=== PATIENT | male | born 1940 | race Two or more races ===

== ENCOUNTER 2016-05-29 23:31 | Inpatient (IN) | payer MEDICARE, OTHER ==
[~2016-05-29] VITALS: Ht 170.2 cm; Wt 75.3 kg
[2016-05-29] MEDS ORDERED: TYLENOL EXTRA500 MG ORAL (23:38)
[2016-05-29 23:54] LABS: BASOPHILS % (AUTO) 1.4 % (0.0-2.0); LYMPHOCYTES % (AUTO) 45.2 % (20.0-45.0); MEAN CORPUSCULAR HEMOGLOBIN 30.9 PG (27.0-31.0); MEAN CORPUSCULAR HGB CONC 33.5 G/DL (32.0-36.0); MEAN CORPUSCULAR VOLUME 92 FL (80-99); MEAN PLATELET VOLUME 7.2 FL (6.5-10.1); NEUTROPHILS % (AUTO) 42.5 % (45.0-75.0); PLATELET COUNT 205 K/UL (150-450); RED BLOOD COUNT 4.48 M/UL (4.70-6.10); RED CELL DISTRIBUTION WIDTH 12.3 % (11.6-14.8); WHITE BLOOD COUNT 9.6 K/UL (4.8-10.8)
[2016-05-30] VITALS (10 sets, daily range): BP systolic 105–144; BP diastolic 48–69
[2016-05-30] MEDS ORDERED: Nitroglycerin Subl 0.4mg tab (Bottle Of 25) SL PRN
[2016-05-30 00:06] LABS: TROPONIN I < 0.30 ng/mL (<=0.30)
[2016-05-30 00:09] LABS: ALANINE AMINOTRANSFERASE 13 U/L (3-41); ALBUMIN/GLOBULIN RATIO 1.6 (1.0-2.7); ANION GAP 15 (5-15); ASPARTATE AMINO TRANSFERASE 14 U/L (5-40); CALCIUM 8.4 mg/dL (8.6-10.2); CARBON DIOXIDE 26 mEQ/L (20-30); CHLORIDE 102 mEQ/L (98-107); CREATININE 0.9 mg/dL (0.7-1.2); HEMOLYSIS 3; POTASSIUM 3.9 mEQ/L (3.4-4.9); SODIUM 143 mEQ/L (135-145); TOTAL PROTEIN 6.6 g/dL (6.6-8.7)
[2016-05-30 00:21] LABS: CKMB < 1.5 ng/mL (< 6.7)
[2016-05-30] MEDS ORDERED: IBUPROFEN600 M1 PO (00:54)
[2016-05-30] MEDS ORDERED: NAPROXEN250 M1 PO (00:54)
[2016-05-30] MEDS ORDERED: CYCLOBENZAPRINE10 MG ORAL (00:56)
[2016-05-30] MEDS ORDERED: TRAMADOL HCL100 M2 ORAL (00:57)
--- NOTE | 2016-05-30 03:56 | Emergency Room Report ---
History of Present Illness General Chief Complaint: Chest Pain Source: Patient, EMS Present Illness HPI 75-year-old female presents to ED complaining of chest pain. Per EMS patient noted chest pain a few hours prior to arrival. Start with back pain which radiated to the chest. Pain was sharp, pressure-like, midsternal. 8/10. Radiating to the left arm. Patient was given aspirin and nitroglycerin by EMS with minimal improvement. Denies shortness of breath. Patient notes history of back pain with back surgery and has had pain radiating to his chest in the past but states today it is different. No aggravating or relieving factors. Denies any other associated symptoms Allergies: Coded Allergies: No Known Allergies (Unverified , 05/29/16) Patient History Past Medical History: none Past Surgical History: none Pertinent Family History: none Social History: Denies: alcohol use, drug use, smoking Immunizations: UTD Reviewed Nursing Documentation: PMH: Agreed, PSxH: Agreed Nursing Documentation-PMH Hx Cardiac Problems: Yes Hx Hypertension: No - Back surgery in October, Review of Systems All Other Systems: negative except mentioned in HPI Physical Exam Vital Signs Date Time Temp Pulse Resp B/P Pulse Ox O2 Delivery O2 Flow Rate FiO2 05/29/16 23:28 97.2 80 18 170/100 98 Room Air 05/30/16 00:10 2.0 Sp02 EP Interpretation: reviewed, normal General Appearance: alert, GCS 15, non-toxic, mild distress Head: normocephalic Eyes: bilateral eye PERRL, bilateral eye normal inspection ENT: normal ENT inspection Neck: normal inspection Respiratory: lungs clear, normal breath sounds, speaking full sentences, other - reproducibel chest wall pain Cardiovascular #1: regular rate, rhythm, no edema Gastrointestinal: normal inspection Rectal: deferred Genitourinary: no CVA tenderness Musculoskeletal: normal inspection Neurologic: alert, oriented x3, responsive, motor strength/tone normal, sensory intact, speech normal Psychiatric: normal inspection Skin: normal inspection Lymphatic: normal inspection Medical Decision Making Diagnostic Impression: Primary Impression: ACS (acute coronary syndrome) ER Course Hospital Course 75-year-old male presents ED complaining of back pain radiating towards the chest Differential diagnoses include: W[place]/unstable angina, contusion, muscle strain, PTX, rib fracture Clinical course Patient placed on stretcher. on environmental monitoring specialist. After initial history and physical I ordered labs, EKG, chest x-ray, ASA, ntg labs reviewed- no leukocytosis, hb/hct stable, electrolytes ok, trop negative, Utox + THC Chest x-ray- no acute process The chest pain was reproducible which could be consistent with the muscular pain he's experienced in the past. However the pain did resolve with nitroglycerin. I do not believe it is safe to discharge the patient at this time I believe he should be admitted for at observation. Patient agrees with the plan Case discussed with and he agreed to accept the patient to his service for further care and support I. I feel this is a highly complex case requiring extensive working including EKG/Rhythm strip, Xray/CT/US, Blood/urine lab work, repeat exams while in ED, and administration of strong opiates/narcotics for pain control, admission to hospital or close patient follow up. Diagnosis - ACS admitted to telemetry in serious condition Labs Test 05/29/16 23:40 White Blood Count 9.6 K/UL (4.8-10.8) Red Blood Count 4.48 M/UL (4.70-6.10) Hemoglobin 13.9 G/DL (14.2-18.0) Hematocrit 41.4 % (42.0-52.0) Mean Corpuscular Volume 92 FL (80-99) Mean Corpuscular Hemoglobin 30.9 PG (27.0-31.0) Mean Corpuscular Hemoglobin Concent 33.5 G/DL (32.0-36.0) Red Cell Distribution Width 12.3 % (11.6-14.8) Platelet Count 205 K/UL (150-450) Mean Platelet Volume 7.2 FL (6.5-10.1) Neutrophils (%) (Auto) 42.5 % (45.0-75.0) Lymphocytes (%) (Auto) 45.2 % (20.0-45.0) Monocytes (%) (Auto) 9.0 % (1.0-10.0) Eosinophils (%) (Auto) 2.0 % (0.0-3.0) Basophils (%) (Auto) 1.4 % (0.0-2.0) Sodium Level 143 mEQ/L (135-145) Potassium Level 3.9 mEQ/L (3.4-4.9) Chloride Level 102 mEQ/L (98-107) Carbon Dioxide Level 26 mEQ/L (20-30) Anion Gap 15 (5-15) Blood Urea Nitrogen 16 mg/dL (7-23) Creatinine 0.9 mg/dL (0.7-1.2) Estimat Glomerular Filtration Rate mL/min (>60) Glucose Level 102 mg/dL (74-106) Calcium Level 8.4 mg/dL (8.6-10.2) Total Bilirubin 0.2 mg/dL (0.0-1.2) Aspartate Amino Transf (AST/SGOT) 14 U/L (5-40) Alanine Aminotransferase (ALT/SGPT) 13 U/L (3-41) Alkaline Phosphatase 46 U/L (40-129) Total Creatine Kinase 56 U/L (38-174) Creatine Kinase MB < 1.5 ng/mL (< 6.7) Creatine Kinase MB Relative Index 2.6 Troponin I < 0.30 ng/mL (<=0.30) Pro-B-Type Natriuretic Peptide 63 pg/mL (0-450) Total Protein 6.6 g/dL (6.6-8.7) Albumin 4.1 g/dL (3.5-5.2) Globulin 2.5 g/dL Albumin/Globulin Ratio 1.6 (1.0-2.7) Urine Opiates Screen Negative (NEGATIVE) Urine Barbiturates Screen Negative (NEGATIVE) Phencyclidine (PCP) Screen Negative (NEGATIVE) Urine Amphetamines Screen Negative (NEGATIVE) Urine Benzodiazepines Screen Negative (NEGATIVE) Urine Cocaine Screen Negative (NEGATIVE) Urine Marijuana (THC) Screen Positive (NEGATIVE) EKG Diagnostic Results Rate: normal Rhythm: NSR ST Segments: other - RBBB ASA given to the pt in ED: Yes Rhythm Strip Diag. Results EP Interpretation: yes Rhythm: NSR, no PVC's, no ectopy Chest X-Ray Diagnostic Results EP Interpretation: Yes Findings: no consolidation, no effusion, no pneumothorax, no acute cardiopulmonary disease Number of Views: 1 Last Vital Signs Date Time Temp Pulse Resp B/P Pulse Ox O2 Delivery O2 Flow Rate FiO2 05/30/16 03:00 67 17 108/54 100 Nasal Cannula 2.0 05/30/16 01:12 98.0 Status: improved Disposition: ADMITTED INPATIENT Condition: Serious Referrals: NOT CHOSEN IPA/MD,REFERRING (PCP) VIANEY AVINA M.D. May 30, 2016 03:56
[2016-05-30] MEDS ORDERED: Nitroglycerin 2% oint pkt TOPIC ONE (05:30)
[2016-05-30] MEDS ORDERED: Morphine Sulfate 2mg/ml Inj IVP PRN (09:30)
[2016-05-30] MEDS ORDERED: traMADol 50mg tab ORAL PRN (09:30)
--- NOTE | 2016-05-30 11:17 | Diagnostic Imaging Report ---
Indication: Chest Pain Comparison: None A single view chest radiograph was obtained. Findings: Heart is enlarged. Lung lines are low but clear. There is cervical hardware present. Bones are unremarkable. Impression: No acute disease
--- NOTE | 2016-05-30 13:13 | History and Physical ---
History of Present Illness General Reason for Hospitalization: Chest Pain Present Illness HPI 75 y/o male with history of recent L4-5 laminectomy s/p fall in October 2015 presents to the ED c/o chest pain. Patient states that he had left shoulder pain last night around 6 pm. The pain escalated and radiated to the substernal region radiating to the neck. 911 was called. Pain was relieved with Nitro. Patient reports he has been alternating Tylenol, Ibuprofen, and Naproxen for pain management. Initial troponin was negative. Chest pain was reproducible per ER physician. Patient also reports that he had a full cardiac and pulmonary work up about 10 years ago and again 5 years ago when he had sudden chest pain while getting cataract surgery. All workup has been negative thus far. Patient was admitted for further care. Allergies: Coded Allergies: No Known Allergies (Unverified , 05/29/16) Medication History Scheduled Cyclobenzaprine Hcl* (Flexeril*), 10 MG ORAL THREE TIMES A DAY, (Reported) Ibuprofen (Ibuprofen), 600 MG PO DAILY, (Reported) Naproxen (Naproxen), 500 MG PO DAILY, (Reported) Tramadol Hcl (Tramadol Hcl), 100 MG ORAL DAILY, (Reported) Scheduled PRN Acetaminophen* (Tylenol Extra Strength*), Unknown Dose ORAL Q6H PRN for Mild Pain/Temp > 100.5, (Reported) Patient History History Provided By: Patient Healthcare decision maker Resuscitation status Full Code Advanced Directive on File will bring documentations Physical Exam General Appearance: WD/WN, no apparent distress HEENT: normocephalic, atraumatic Respiratory/Chest: lungs clear Cardiovascular/Chest: normal rate, regular rhythm Abdomen: non tender, soft Extremities: non-pitting Neurologic: alert, oriented x 3 Last 24 Hour Vital Signs Date Time Temp Pulse Resp B/P Pulse Ox O2 Delivery O2 Flow Rate FiO2 05/30/16 12:49 100.2 76 20 128/57 96 Nasal Cannula 2.0 05/30/16 12:00 97.9 05/30/16 11:37 Nasal Cannula 2.0 28 05/30/16 11:36 97 Nasal Cannula 2.0 28 05/30/16 08:00 86 05/30/16 07:24 66 15 128/59 98 Nasal Cannula 2.0 05/30/16 07:09 97.5 67 15 128/48 98 Nasal Cannula 2.0 05/30/16 06:00 97.5 67 15 124/59 98 Nasal Cannula 2.0 05/30/16 05:35 124/56 05/30/16 05:00 69 17 116/57 98 Nasal Cannula 2.0 05/30/16 04:00 97.8 72 16 109/58 100 Nasal Cannula 2.0 05/30/16 03:00 67 17 108/54 100 Nasal Cannula 2.0 05/30/16 01:12 98.0 65 19 105/48 100 Nasal Cannula 2.0 05/30/16 00:12 97.2 66 16 144/69 100 Nasal Cannula 2.0 05/30/16 00:10 66 16 Nasal Cannula 2.0 05/29/16 23:55 154/75 05/29/16 23:28 97.2 80 18 170/100 98 Room Air Intake and Output 05/29/16 05/30/16 19:00 07:00 Intake Total 1500 ml Balance 1500 ml Intake IV Total 1500 ml # Voids 1 Laboratory Tests Test 05/29/16 23:40 White Blood Count 9.6 K/UL (4.8-10.8) Red Blood Count 4.48 M/UL (4.70-6.10) L Hemoglobin 13.9 G/DL (14.2-18.0) L Hematocrit 41.4 % (42.0-52.0) L Mean Corpuscular Volume 92 FL (80-99) Mean Corpuscular Hemoglobin 30.9 PG (27.0-31.0) Mean Corpuscular Hemoglobin Concent 33.5 G/DL (32.0-36.0) Red Cell Distribution Width 12.3 % (11.6-14.8) Platelet Count 205 K/UL (150-450) Mean Platelet Volume 7.2 FL (6.5-10.1) Neutrophils (%) (Auto) 42.5 % (45.0-75.0) L Lymphocytes (%) (Auto) 45.2 % (20.0-45.0) H Monocytes (%) (Auto) 9.0 % (1.0-10.0) Eosinophils (%) (Auto) 2.0 % (0.0-3.0) Basophils (%) (Auto) 1.4 % (0.0-2.0) Sodium Level 143 mEQ/L (135-145) Potassium Level 3.9 mEQ/L (3.4-4.9) Chloride Level 102 mEQ/L (98-107) Carbon Dioxide Level 26 mEQ/L (20-30) Anion Gap 15 (5-15) Blood Urea Nitrogen 16 mg/dL (7-23) Creatinine 0.9 mg/dL (0.7-1.2) Estimat Glomerular Filtration Rate mL/min (>60) Glucose Level 102 mg/dL (74-106) Calcium Level 8.4 mg/dL (8.6-10.2) L Total Bilirubin 0.2 mg/dL (0.0-1.2) Aspartate Amino Transf (AST/SGOT) 14 U/L (5-40) Alanine Aminotransferase (ALT/SGPT) 13 U/L (3-41) Alkaline Phosphatase 46 U/L (40-129) Total Creatine Kinase 56 U/L (38-174) Creatine Kinase MB < 1.5 ng/mL (< 6.7) Creatine Kinase MB Relative Index 2.6 Troponin I < 0.30 ng/mL (<=0.30) Pro-B-Type Natriuretic Peptide 63 pg/mL (0-450) Total Protein 6.6 g/dL (6.6-8.7) Albumin 4.1 g/dL (3.5-5.2) Globulin 2.5 g/dL Albumin/Globulin Ratio 1.6 (1.0-2.7) Urine Opiates Screen Negative (NEGATIVE) Urine Barbiturates Screen Negative (NEGATIVE) Phencyclidine (PCP) Screen Negative (NEGATIVE) Urine Amphetamines Screen Negative (NEGATIVE) Urine Benzodiazepines Screen Negative (NEGATIVE) Urine Cocaine Screen Negative (NEGATIVE) Urine Marijuana (THC) Screen Positive (NEGATIVE) H Height (Feet): 5 Height (Inches): 7.00 Weight (Pounds): 166 Medications Current Medications Medications (Trade) Dose Ordered Sig/Loren Route PRN Reason Start Time Stop Time Status Last Admin Dose Admin Acetaminophen (Tylenol) 650 mg Q4H PRN ORAL Mild Pain (Pain Scale 1-3) 05/30/16 09:30 06/29/16 09:29 05/30/16 11:10 Cyclobenzaprine HCl (Flexeril) 10 mg THREE TIMES A DAY ORAL 05/30/16 13:00 06/29/16 12:59 Dextrose (Dextrose 50%) STAT PRN IV Hypoglycemia 05/30/16 09:30 06/29/16 09:29 Ibuprofen (Motrin) 600 mg Q6H PRN ORAL For Pain 05/30/16 09:30 06/29/16 09:29 Morphine Sulfate (Morphine Sulfate) 2 mg Q4H PRN IVP Severe Pain (Pain Scale 7-10) 05/30/16 09:30 06/06/16 09:29 Nitroglycerin (Ntg) 0.4 mg Q5M PRN SL Prn Chest Pain 05/30/16 00:00 06/29/16 00:00 05/29/16 23:55 Ondansetron HCl (Zofran) 4 mg Q6H PRN IVP Nausea & Vomiting 05/30/16 09:30 06/29/16 09:29 Tramadol HCl (Ultram) 100 mg Q6H PRN ORAL Moderate Breakthru Pain (5-7) 05/30/16 09:30 06/06/16 09:29 Assessment/Plan Problem List: (1) Chest pain ICD Codes: R07.9 - Chest pain, unspecified SNOMED: 17718120 (2) Chronic back pain ICD Codes: M54.9 - Dorsalgia, unspecified; G89.29 - Other chronic pain SNOMED: 247670971 Qualifiers: (3) Gastritis ICD Codes: K29.70 - Gastritis, unspecified, without bleeding SNOMED: 6496037 Qualifiers: (4) ACS (acute coronary syndrome) ICD Codes: I24.9 - Acute ischemic heart disease, unspecified SNOMED: 042182024 Assessment/Plan D/c NSAIDS except for Tylenol. Advised patient not to take more than 3g per day. Start Ranitidine 150 mg po bid. Cardio consult with Dr. Conte. May need stress test. DVT ppx - SCDs. Ambulate. PT/OT. RATURO BARTON May 30, 2016 13:13
[2016-05-30] MEDS: Cyclobenzaprine 10mg Tab ORAL SCH ×2 (13:21→17:25)
--- NOTE | 2016-05-30 13:28 | Cardiac Electrophysiology PN ---
Subjective Subjective [id number] Objective Last 24 Hour Vital Signs Date Time Temp Pulse Resp B/P Pulse Ox O2 Delivery O2 Flow Rate FiO2 05/30/16 12:49 98.2 76 20 128/57 96 Nasal Cannula 2.0 05/30/16 12:00 97.9 05/30/16 11:37 Nasal Cannula 2.0 28 05/30/16 11:36 97 Nasal Cannula 2.0 28 05/30/16 08:00 86 05/30/16 07:24 66 15 128/59 98 Nasal Cannula 2.0 05/30/16 07:09 97.5 67 15 128/48 98 Nasal Cannula 2.0 05/30/16 06:00 97.5 67 15 124/59 98 Nasal Cannula 2.0 05/30/16 05:35 124/56 05/30/16 05:00 69 17 116/57 98 Nasal Cannula 2.0 05/30/16 04:00 97.8 72 16 109/58 100 Nasal Cannula 2.0 05/30/16 03:00 67 17 108/54 100 Nasal Cannula 2.0 05/30/16 01:12 98.0 65 19 105/48 100 Nasal Cannula 2.0 05/30/16 00:12 97.2 66 16 144/69 100 Nasal Cannula 2.0 05/30/16 00:10 66 16 Nasal Cannula 2.0 05/29/16 23:55 154/75 05/29/16 23:28 97.2 80 18 170/100 98 Room Air Intake and Output 05/29/16 05/30/16 19:00 07:00 Intake Total 1500 ml Balance 1500 ml Intake IV Total 1500 ml # Voids 1 Laboratory Tests Test 05/29/16 23:40 White Blood Count 9.6 K/UL (4.8-10.8) Red Blood Count 4.48 M/UL (4.70-6.10) L Hemoglobin 13.9 G/DL (14.2-18.0) L Hematocrit 41.4 % (42.0-52.0) L Mean Corpuscular Volume 92 FL (80-99) Mean Corpuscular Hemoglobin 30.9 PG (27.0-31.0) Mean Corpuscular Hemoglobin Concent 33.5 G/DL (32.0-36.0) Red Cell Distribution Width 12.3 % (11.6-14.8) Platelet Count 205 K/UL (150-450) Mean Platelet Volume 7.2 FL (6.5-10.1) Neutrophils (%) (Auto) 42.5 % (45.0-75.0) L Lymphocytes (%) (Auto) 45.2 % (20.0-45.0) H Monocytes (%) (Auto) 9.0 % (1.0-10.0) Eosinophils (%) (Auto) 2.0 % (0.0-3.0) Basophils (%) (Auto) 1.4 % (0.0-2.0) Sodium Level 143 mEQ/L (135-145) Potassium Level 3.9 mEQ/L (3.4-4.9) Chloride Level 102 mEQ/L (98-107) Carbon Dioxide Level 26 mEQ/L (20-30) Anion Gap 15 (5-15) Blood Urea Nitrogen 16 mg/dL (7-23) Creatinine 0.9 mg/dL (0.7-1.2) Estimat Glomerular Filtration Rate mL/min (>60) Glucose Level 102 mg/dL (74-106) Calcium Level 8.4 mg/dL (8.6-10.2) L Total Bilirubin 0.2 mg/dL (0.0-1.2) Aspartate Amino Transf (AST/SGOT) 14 U/L (5-40) Alanine Aminotransferase (ALT/SGPT) 13 U/L (3-41) Alkaline Phosphatase 46 U/L (40-129) Total Creatine Kinase 56 U/L (38-174) Creatine Kinase MB < 1.5 ng/mL (< 6.7) Creatine Kinase MB Relative Index 2.6 Troponin I < 0.30 ng/mL (<=0.30) Pro-B-Type Natriuretic Peptide 63 pg/mL (0-450) Total Protein 6.6 g/dL (6.6-8.7) Albumin 4.1 g/dL (3.5-5.2) Globulin 2.5 g/dL Albumin/Globulin Ratio 1.6 (1.0-2.7) Urine Opiates Screen Negative (NEGATIVE) Urine Barbiturates Screen Negative (NEGATIVE) Phencyclidine (PCP) Screen Negative (NEGATIVE) Urine Amphetamines Screen Negative (NEGATIVE) Urine Benzodiazepines Screen Negative (NEGATIVE) Urine Cocaine Screen Negative (NEGATIVE) Urine Marijuana (THC) Screen Positive (NEGATIVE) H KIAN BACH May 30, 2016 13:28
[2016-05-31] VITALS: BP 109/52
--- NOTE | 2016-05-31 00:17 | Consultation ---
DATE OF CONSULTATION: 05/30/2016 CARDIOLOGY CONSULTATION CONSULTING PHYSICIAN: Earl Conte M.D. REFERRING PHYSICIAN: Benoit Cortes M.D. REASON FOR CONSULTATION: Chest pain. HISTORY OF PRESENT ILLNESS: The patient is a 75-year-old gentleman with history of hypertension and history of chest pain in the past for which he state that he has had evaluations many times. The patient also has history of PFO status post Amplatz PFO closure at [facility]. The patient also has history of recent L4-L5 laminectomy after a fall in October of 2015. The patient came to the emergency room complaining of chest pain, left shoulder pain at 6 o'clock at night which had some radiation to the neck, called 911. Nitroglycerin partially relieved the pain. His EKG shows sinus Sukhjinder rate of 54 with right bundle-branch block with no acute ST-T wave abnormality. At the time of my evaluation, the patient is quite comfortable. Denies any chest or shortness of breath. PAST MEDICAL HISTORY: 1. Hypertension. 2. PFO status post PFO closure with Amplatz. 3. History of migraine. MEDICATION: Ibuprofen, naproxen, tramadol, and Flexeril. ALLERGIES: He has no known drug allergies. FAMILY HISTORY: Noncontributory. REVIEW OF SYSTEMS: Review of systems was negative other than what was mentioned in the history of present illness. PHYSICAL EXAMINATION: VITAL SIGNS: Blood pressure is 128/67, pulse 76, respirations 16, and he is afebrile. NECK: Neck shows no JVD or carotid bruits. LUNGS: Clear. CARDIOVASCULAR: Shows regular S1 and S2 with no gallop or murmur. ABDOMEN: Soft. EXTREMITIES: No pitting edema. LABORATORY AND DIAGNOSTIC DATA: His EKG as mentioned above. The patient has sinus rhythm with right bundle-branch block. White count 9.0, hemoglobin 13.9, hematocrit 41.4, and platelets 205,000. Sodium 143, potassium 3.9, BUN of 60, creatinine 0.9, and glucose of 102, troponin is negative. ASSESSMENT AND PLAN: 1. Chest pain. The patient's first troponin is negative. An EKG is nonischemic. We will completely rule out myocardial infarction protocol. We will get an echocardiogram and if all negative, proceed with nuclear stress test for further evaluation and management. 2. Status post PFO closure with Amplatzer. Echocardiogram reading is pending to make sure device put into the right location. 3. History of migraine, the patient's status improved with the PFO closure device. Thank very much, Dr. Cortes for allowing me to participate in the care of this patient. Please do not hesitate to contact me for any questions regarding my evaluation. Earl Conte M.D. DR: Una JOB#: [id number] CC:
[2016-05-31 04:00] VITALS: BP 117/57
[2016-05-31 05:51] LABS: BASOPHILS % (AUTO) 0.6 % (0.0-2.0); EOSINOPHILS % (AUTO) 0.5 % (0.0-3.0); LYMPHOCYTES % (AUTO) 32.1 % (20.0-45.0); MEAN CORPUSCULAR HEMOGLOBIN 30.3 PG (27.0-31.0); MEAN CORPUSCULAR HGB CONC 32.6 G/DL (32.0-36.0); MEAN CORPUSCULAR VOLUME 93 FL (80-99); MEAN PLATELET VOLUME 7.4 FL (6.5-10.1); MONOCYTES % (AUTO) 9.3 % (1.0-10.0); NEUTROPHILS % (AUTO) 57.5 % (45.0-75.0); PLATELET COUNT 180 K/UL (150-450); RED BLOOD COUNT 4.14 M/UL (4.70-6.10); RED CELL DISTRIBUTION WIDTH 12.4 % (11.6-14.8); WHITE BLOOD COUNT 8.2 K/UL (4.8-10.8)
[2016-05-31 06:59] LABS: TROPONIN I < 0.30 ng/mL (<=0.30)
[2016-05-31 07:01] LABS: ANION GAP 14 (5-15); CALCIUM 8.3 mg/dL (8.6-10.2); CARBON DIOXIDE 24 mEQ/L (20-30); CHLORIDE 102 mEQ/L (98-107); CHOLESTEROL 165 mg/dL (< 200); CHOLESTEROL/HDL RATIO 2.2 (3.3-4.4); CREATININE 0.7 mg/dL (0.7-1.2); HEMOLYSIS 4; LDL CHOLESTEROL (CALC.) 80 mg/dL (60-99); POTASSIUM 3.8 mEQ/L (3.4-4.9); SODIUM 140 mEQ/L (135-145)
[2016-05-31 08:00] VITALS: BP 122/65
[2016-05-31] MEDS: Cyclobenzaprine 10mg Tab ORAL SCH ×3 (09:00→18:26)
[2016-05-31 12:00] VITALS: BP 134/55
[2016-05-31] MEDS ORDERED: Adenosine Inj IVP SCH (12:00)
--- NOTE | 2016-05-31 14:44 | Nephrology Progress Note ---
Assessment/Plan Problem List: (1) Chest pain (2) ACS (acute coronary syndrome) (3) Chronic back pain Plan Cardiology f/u, will follow up with rec DC home with home health if cleared by cardio Subjective Constitutional: Denies: chills, diaphoresis, fever, malaise, no symptoms, other , weakness HEENT: Reports: other - headache Genitourinary: Denies: burning, discharge, flank pain, frequency, hematuria, incontinence, no symptoms, other, pain, urgency Neurologic/Psychiatric: Denies: anxiety, depressed, emotional problems, headache, no symptoms, numbness, other, paresthesia, pre-existing deficit, seizure, tingling, tremors, weakness Subjective In bed, denies chest pain but states that he'll like some tylenol for headache. Wants to be discharged home. Objective Objective Last 24 Hour Vital Signs Date Time Temp Pulse Resp B/P Pulse Ox O2 Delivery O2 Flow Rate FiO2 05/31/16 12:02 75 05/31/16 12:00 75 05/31/16 12:00 97.9 20 134/55 72 Room Air 05/31/16 08:00 97.9 65 18 122/65 95 Room Air 05/31/16 07:11 Nasal Cannula 1.5 05/31/16 07:10 96 Nasal Cannula 1.5 05/31/16 04:00 98.2 68 18 117/57 97 Room Air 05/31/16 04:00 61 05/31/16 00:00 98.1 62 16 109/52 95 Nasal Cannula 2.0 05/31/16 00:00 68 05/30/16 21:43 96 Nasal Cannula 1.5 05/30/16 21:43 Nasal Cannula 1.5 05/30/16 20:00 97.5 67 14 125/67 68 Nasal Cannula 1.5 05/30/16 20:00 69 05/30/16 16:00 97.9 62 13 129/66 97 Nasal Cannula 1.5 05/30/16 16:00 61 Intake and Output 05/30/16 05/31/16 19:00 07:00 Intake Total 100 ml Output Total 1300 ml 300 ml Balance -1200 ml -300 ml Intake Oral 100 ml Output Urine Total 1300 ml 300 ml # Voids 2 3 Laboratory Tests 05/31/16 03:40: White Blood Count 8.2, Red Blood Count 4.14L, Hemoglobin 12.5L, Hematocrit 38.5L , Mean Corpuscular Volume 93, Mean Corpuscular Hemoglobin 30.3, Mean Corpuscular Hemoglobin Concent 32.6, Red Cell Distribution Width 12.4, Platelet Count 180, Mean Platelet Volume 7.4, Neutrophils (%) (Auto) 57.5, Lymphocytes (% ) (Auto) 32.1, Monocytes (%) (Auto) 9.3, Eosinophils (%) (Auto) 0.5, Basophils ( %) (Auto) 0.6, Sodium Level 140, Potassium Level 3.8, Chloride Level 102, Carbon Dioxide Level 24, Anion Gap 14, Blood Urea Nitrogen 9, Creatinine 0.7, Estimat Glomerular Filtration Rate , Glucose Level 102, Calcium Level 8.3L, Total Creatine Kinase 35L, Troponin I < 0.30, Pro-B-Type Natriuretic Peptide 600H, Triglycerides Level 53, Cholesterol Level 165, LDL Cholesterol 80, HDL Cholesterol 74H, Cholesterol/HDL Ratio 2.2L Height (Feet): 5 Height (Inches): 7.00 Weight (Pounds): 166 General Appearance: no apparent distress, alert EENT: normal ENT inspection Neck: normal alignment, supple, normal inspection Cardiovascular: normal peripheral pulses, normal rate, regular rhythm, no JVD Respiratory/Chest: lungs clear, normal breath sounds, no respiratory distress Abdomen: non tender, soft, no organomegaly Extremities: normal range of motion, non-tender, normal inspection, no calf tenderness Neurologic: alert, oriented x 3, responsive, normal mood/affect Prudence Maxwell N.P. May 31, 2016 14:44
[2016-05-31 16:08] VITALS: BP 131/73
[2016-05-31 20:00] VITALS: BP_SYST 116; BP_SYST 141; BP_DIAS 64; BP_DIAS 77
[2016-06-01] VITALS: BP 120/72
[2016-06-01 04:00] VITALS: BP 130/63
[2016-06-01 06:12] LABS: BASOPHILS % (AUTO) 1.1 % (0.0-2.0); EOSINOPHILS % (AUTO) 1.4 % (0.0-3.0); LYMPHOCYTES % (AUTO) 37.6 % (20.0-45.0); MEAN CORPUSCULAR HEMOGLOBIN 30.3 PG (27.0-31.0); MEAN CORPUSCULAR HGB CONC 32.3 G/DL (32.0-36.0); MEAN CORPUSCULAR VOLUME 94 FL (80-99); MEAN PLATELET VOLUME 7.1 FL (6.5-10.1); MONOCYTES % (AUTO) 7.9 % (1.0-10.0); PLATELET COUNT 169 K/UL (150-450); RED BLOOD COUNT 4.34 M/UL (4.70-6.10); RED CELL DISTRIBUTION WIDTH 11.6 % (11.6-14.8); WHITE BLOOD COUNT 7.6 K/UL (4.8-10.8)
[2016-06-01 06:36] LABS: ANION GAP 13 (5-15); CALCIUM 8.3 mg/dL (8.6-10.2); CARBON DIOXIDE 25 mEQ/L (20-30); CHLORIDE 103 mEQ/L (98-107); CREATININE 0.7 mg/dL (0.7-1.2); HEMOLYSIS 11; SODIUM 141 mEQ/L (135-145)
[2016-06-01 08:00] VITALS: BP 132/71
[2016-06-01] MEDS: Cyclobenzaprine 10mg Tab ORAL SCH ×3 (08:57→17:25)
--- NOTE | 2016-06-01 09:02 | Diagnostic Imaging Report ---
Indications: 75-year-old male inpatient presents with chest pain Technique: The examination was supervised by Dr. Spears. Baseline electrocardiogram was recorded. Adenosine was administered the patient intravenously per usual protocol. Continuous electrocardiography, heart rate, blood pressure monitoring performed. Immediate SPECT imaging of the left ventricular myocardium was performed in multiple planes with the patient in supine position, following intravenous administration of 32.1 mCi 99 M technetium-sestaMIBI. Cinegraphic images were generated for wall motion analysis. Left ventricular ejection fraction was calculated. Similar imaging was performed at rest immediately prior with intravenous administration of 0.5 mCi 99 M technetium-sestaMIBI. Findings: Comparison: None. Baseline electrocardiogram demonstrates right bundle branch block. Both stress and rest images demonstrate left ventricular myocardial perfusion to be intact. No areas of abnormally decreased or absent perfusion are demonstrated. Cinegraphic images demonstrate no areas of wall motion abnormality. Ejection fraction is estimated at 73%. The patient developed abdominal pain, shortness of breath, and flushing but no acute electrocardiographic changes during adenosine infusion. Supervising cutting machine tender decorative's conclusions are that clinical response to pharmacologic stress simulation is nonischemic while electrocardiographic response is nondiagnostic. IMPRESSION: Negative left ventricular myocardial perfusion scan. This correlates with supervising cutting machine tender decorative's conclusions.
[2016-06-01 12:00] VITALS: BP 111/61
--- NOTE | 2016-06-01 12:00 | Discharge Summary ---
Discharge Summary Hospital Course Date of Admission May 30, 2016 at 01:15 Date of Discharge Jun 01, 2016 Admitting Diagnosis ACS HPI Wade Araiza is a 75 y/o male with history of recent L4-5 laminectomy s/p fall in October 2015 presents to the ED c/o chest pain. Patient states that he had left shoulder pain last night around 6 pm. The pain escalated and radiated to the substernal region radiating to the neck. 911 was called. Pain was relieved with Nitro. Patient reports he has been alternating Tylenol, Ibuprofen, and Naproxen for pain management. Initial troponin was negative. Chest pain was reproducible per ER physician. Patient also reports that he had a full cardiac and pulmonary work up about 10 years ago and again 5 years ago when he had sudden chest pain while getting cataract surgery. All workup has been negative thus far. Patient was admitted for further care. Consultations Dr. Conte - Cardio. Procedures Myocardial perfusion scan - negative. Hospital Course Patient was admitted to telemetry and placed on phototypesetting equipment monitor. Serial troponin was negative x 3. Stress test was negative. Patient cleared to be discharged home to f/u with PCP. Discharge Condition Upon Discharge: stable Discharge Disposition Patient was discharged to home. Discharge Diagnoses: (1) Gastritis (2) Chest pain (3) Chronic back pain ARTURO BARTON Jun 01, 2016 12:00
--- NOTE | 2016-06-01 14:41 | Nephrology Progress Note ---
Assessment/Plan Problem List: (1) Chest pain (2) ACS (acute coronary syndrome) (3) Chronic back pain Plan Awaiting cardio clearance DC home with home health if cleared by cardio Subjective Constitutional: Denies: chills, diaphoresis, fever, malaise, no symptoms, other , weakness HEENT: Denies: blurred vision, double vision, ear discharge, ear pain, eye pain , mouth pain, mouth swelling, no symptoms, nose congestion, nose pain, other, tearing, throat pain, throat swelling Genitourinary: Denies: burning, discharge, flank pain, frequency, hematuria, incontinence, no symptoms, other, pain, urgency Neurologic/Psychiatric: Denies: anxiety, depressed, emotional problems, headache, no symptoms, numbness, other, paresthesia, pre-existing deficit, seizure, tingling, tremors, weakness Subjective In bed, denies chest pain, anxious to go home, states that he feels ok. RN stated that pt's HR dropped to the 30s and 40s this am, pt was asymptomatic. Objective Objective Last 24 Hour Vital Signs Date Time Temp Pulse Resp B/P Pulse Ox O2 Delivery O2 Flow Rate FiO2 06/01/16 09:56 98.0 06/01/16 08:00 66 06/01/16 08:00 97.3 61 21 132/71 96 Room Air 06/01/16 04:00 98.0 66 18 130/63 94 Room Air 06/01/16 04:00 72 06/01/16 00:00 69 06/01/16 00:00 98.0 75 24 120/72 97 Room Air 05/31/16 20:00 98.1 72 25 116/64 94 Room Air 05/31/16 20:00 73 05/31/16 16:08 97.9 71 23 131/73 97 Room Air 05/31/16 16:02 97.9 05/31/16 16:00 72 Intake and Output 05/31/16 06/01/16 19:00 07:00 Intake Total 360 ml 500 ml Output Total 660 ml Balance -300 ml 500 ml Intake Oral 360 ml 500 ml Output Urine Total 660 ml # Voids 5 # Bowel Movements 1 Laboratory Tests 06/01/16 04:20: White Blood Count 7.6, Red Blood Count 4.34L, Hemoglobin 13.1L, Hematocrit 40.6L , Mean Corpuscular Volume 94, Mean Corpuscular Hemoglobin 30.3, Mean Corpuscular Hemoglobin Concent 32.3, Red Cell Distribution Width 11.6, Platelet Count 169, Mean Platelet Volume 7.1, Neutrophils (%) (Auto) 52.0, Lymphocytes (% ) (Auto) 37.6, Monocytes (%) (Auto) 7.9, Eosinophils (%) (Auto) 1.4, Basophils ( %) (Auto) 1.1, Sodium Level 141, Potassium Level 4.0, Chloride Level 103, Carbon Dioxide Level 25, Anion Gap 13, Blood Urea Nitrogen 16, Creatinine 0.7, Estimat Glomerular Filtration Rate , Glucose Level 95, Calcium Level 8.3L Height (Feet): 5 Height (Inches): 7.00 Weight (Pounds): 166 General Appearance: no apparent distress, alert EENT: normal ENT inspection Neck: non-tender, normal alignment, supple, normal inspection Cardiovascular: normal rate, regular rhythm, no JVD Respiratory/Chest: lungs clear, normal breath sounds, no respiratory distress Abdomen: non tender, soft, no organomegaly, no mass Extremities: normal range of motion, non-tender, normal inspection, no calf tenderness Neurologic: alert, oriented x 3, responsive, normal mood/affect rPudence Maxwell N.P. Jun 01, 2016 14:41
[2016-06-01 16:12] VITALS: BP 145/88
--- NOTE | 2016-06-01 16:24 | Cardiac Electrophysiology PN ---
Assessment/Plan Assessment/Plan 1. Chest pain. Ruled out for myocardial infarction.Nuclear stress test showed no ischemia. EF 55% 2. Status post PFO closure with Amplatzer. 3. History of migraine. DW RN OK to DC from cardiac stand point Subjective Subjective Alert in NAD. Had nuclear stress test today. No chest pain. Objective Last 24 Hour Vital Signs Date Time Temp Pulse Resp B/P Pulse Ox O2 Delivery O2 Flow Rate FiO2 06/01/16 16:12 97.3 83 14 145/88 100 Room Air 06/01/16 14:21 98.0 06/01/16 12:00 91 06/01/16 12:00 98.6 75 20 111/61 98 Room Air 06/01/16 08:00 66 06/01/16 08:00 97.3 61 21 132/71 96 Room Air 06/01/16 04:00 98.0 66 18 130/63 94 Room Air 06/01/16 04:00 72 06/01/16 00:00 69 06/01/16 00:00 98.0 75 24 120/72 97 Room Air 05/31/16 20:00 98.1 72 25 116/64 94 Room Air 05/31/16 20:00 73 Intake and Output 05/31/16 06/01/16 19:00 07:00 Intake Total 360 ml 500 ml Output Total 660 ml Balance -300 ml 500 ml Intake Oral 360 ml 500 ml Output Urine Total 660 ml # Voids 5 # Bowel Movements 1 Laboratory Tests Test 06/01/16 04:20 White Blood Count 7.6 K/UL (4.8-10.8) Red Blood Count 4.34 M/UL (4.70-6.10) L Hemoglobin 13.1 G/DL (14.2-18.0) L Hematocrit 40.6 % (42.0-52.0) L Mean Corpuscular Volume 94 FL (80-99) Mean Corpuscular Hemoglobin 30.3 PG (27.0-31.0) Mean Corpuscular Hemoglobin Concent 32.3 G/DL (32.0-36.0) Red Cell Distribution Width 11.6 % (11.6-14.8) Platelet Count 169 K/UL (150-450) Mean Platelet Volume 7.1 FL (6.5-10.1) Neutrophils (%) (Auto) 52.0 % (45.0-75.0) Lymphocytes (%) (Auto) 37.6 % (20.0-45.0) Monocytes (%) (Auto) 7.9 % (1.0-10.0) Eosinophils (%) (Auto) 1.4 % (0.0-3.0) Basophils (%) (Auto) 1.1 % (0.0-2.0) Sodium Level 141 mEQ/L (135-145) Potassium Level 4.0 mEQ/L (3.4-4.9) Chloride Level 103 mEQ/L (98-107) Carbon Dioxide Level 25 mEQ/L (20-30) Anion Gap 13 (5-15) Blood Urea Nitrogen 16 mg/dL (7-23) Creatinine 0.7 mg/dL (0.7-1.2) Estimat Glomerular Filtration Rate mL/min (>60) Glucose Level 95 mg/dL (74-106) Calcium Level 8.3 mg/dL (8.6-10.2) L Objective NECK: No JVD or carotid bruits. LUNGS: Clear. CARDIOVASCULAR: Regular S1 and S2 with no gallop or murmur. ABDOMEN: Soft. EXTREMITIES: No pitting edema. KIAN BACH Jun 01, 2016 16:24
--- NOTE | 2016-06-01 18:00 | Cardiology Report ---
APPROVED REPORT EKG Measurement Heart [id number] Sinus bradycardia Right bundle branch block Abnormal ECG
--- NOTE | 2016-06-01 23:31 | Diagnostic Imaging Report ---
APPROVED REPORT CPT Code: 09850 Present Symptoms Comments: Chest pain Screening BILATERAL: Imaging reveals a patent deep venous system bilaterally. There is no evidence of thrombus within the femoral, popliteal or tibial segments. The greater saphenous veins are also within normal limits. Doppler indicates normal spontaneous flow within these segments.
--- NOTE | 2016-06-08 16:11 | Cardiology Report ---
APPROVED REPORT EXAM: Two-dimensional and M-mode echocardiogram with Doppler and color Doppler. INDICATION Chest Pain M-Mode DIMENSIONS IVSd1.3 (0.7-1.1cm)Left Atrium (MM)2.9 (1.6-4.0cm) LVDd3.6 (3.5-5.6cm)Aortic Root3.5 (2.0-3.7cm) PWd1.1 (0.7-1.1cm)Aortic Cusp Exc.2.1 (1.5-2.0cm) LVDs2.1 (2.5-4.0cm) PWs1.2 cm Normal left ventricular chamber size, systolic function and wall motion. Left ventricular ejection fraction estimated to be 55-60%. Mild left ventricular hypertrophy. No evidence of pericardial fat or effusion. All other cardiac chamber sizes are within normal limits. Focal aortic valve sclerosis with adequate cusp excursion Thickened mitral valve leaflets with normal excursion. Mitral annulus and aortic root calcification. Pulmonic valve not well visualized. Normal tricuspid valve structure. IVC is normal with physiologic collapse. A color flow and spectral Doppler study was performed and revealed: No aortic regurgitation. Mild mitral regurgitation. Left ventricular diastolic dysfunction grade 1. No tricuspid regurgitation.
== END 2016-06-01 17:35 | disposition home health service (06) | DRG 392 ==
LOC: EDBD 23:31 → EMR 23:52 → 2W 05-30 01:15 → EDBEDREQ 05-30 05:29 → 2W 05-30 08:10
DX: K29.70 Gastritis, unspecified, without bleeding (principal); R00.1 Bradycardia, unspecified; I45.10 Unspecified right bundle-branch block; M54.9 Dorsalgia, unspecified; G89.29 Other chronic pain; R07.9 Chest pain, unspecified
CPT/HCPCS: 36415; 71010; 78452; 80048; 80053; 80061; 80300; 82550; 82553; 83880; 84484; 85025; 93005; 93017; 93306; 93970; 94760; J2405